=== PATIENT | female | born 1955 | race Caucasian/White ===

== ENCOUNTER 2019-04-16 11:24 | Day surgery (SDC) | payer OTHER ==
[2019-04-16 12:34] LABS: ADD MAN DIFF? NO
[2019-04-16 12:37] LABS: WHITE BLOOD COUNT 4.6 10^3/ul (4.8-10.8)
[2019-04-16 12:37] LABS: BASOPHILS % 0.2 % (0.0-2.0); EOSINOPHILS # 0.1 10^3/ul (0.0-0.5); EOSINOPHILS % 2.4 % (0.0-7.0); HEMATOCRIT 41.7 % (37.0-47.0); HEMOGLOBIN 13.3 g/dl (12.0-16.0); LYMPHOCYTES # 1.4 10^3/ul (0.8-2.9); LYMPHOCYTES % 30.5 % (15.0-51.0); MEAN CORPUSCULAR HEMOGLOBIN 27.2 pg (29.0-33.0); MEAN CORPUSCULAR HGB CONC 31.9 g/dl (32.0-37.0); MEAN CORPUSCULAR VOLUME 85.3 fl (82.0-101.0); MEAN PLATELET VOLUME 10.8 fl (7.4-10.4); MONOCYTE # 0.3 10^3/ul (0.3-0.9); MONOCYTES % 6.1 % (0.0-11.0); NEUTROPHIL # 2.8 10^3/ul (1.6-7.5); NEUTROPHILS % 60.6 % (39.0-77.0); PLATELET COUNT 186 10^3/UL (140-415); RED BLOOD COUNT 4.89 10^6/ul (4.20-5.40)
[2019-04-16] MEDS: SOD CHLORIDE 0.9% 1,000 ML IV (12:50)
[2019-04-16 12:54] LABS: ANION GAP 4 (5-13); BLOOD UREA NITROGEN 19 mg/dl (7-20); CALCIUM 8.5 mg/dl (8.4-10.2); CARBON DIOXIDE 27 mmol/L (21-31); CHLORIDE 108 mmol/L (97-110); CREATININE 0.61 mg/dl (0.44-1.00); Estimated GFR > 60 mL/min (>60); GLUCOSE 79 mg/dl (70-220); POTASSIUM 4.3 mmol/L (3.5-5.1); SODIUM 139 mmol/L (135-144)
[2019-04-16 12:56] LABS: INR 0.99; PROTIME 13.2 Sec (11.9-14.9)
[2019-04-16 12:57] LABS: PARTIAL THROMBOPLASTIN TIME 30.8 Sec (23.0-35.0)
[2019-04-16] MEDS ORDERED: GENTAMICIN 80 MG INJ (12:58)
[2019-04-16] MEDS ORDERED: morphine 2 MG INJ IV (15:00)
[2019-04-16] MEDS ORDERED: HYDROCODONE/APAP (5/325) TAB PO (15:00)
[2019-04-16] MEDS ORDERED: ONDANSETRON 4 MG INJ IV (15:00)
[2019-04-16] MEDS ORDERED: ACETAMINOPHEN 325 MG TAB PO (15:00)
[2019-04-16] MEDS ORDERED: LIDOCAINE 2% (SDV) 5 ML INJ (15:13)
[2019-04-16] MEDS ORDERED: FENTAnyl 50 MCG/ML VIAL (15:13)
[2019-04-16] MEDS ORDERED: MIDAZOLAM 1 MG/ML 2 ML INJ (15:13)
[2019-04-16] MEDS ORDERED: PROPOFOL 20 ML (15:13)
[2019-04-16] MEDS ORDERED: CEFAZOLIN 1 GM INJ (15:24)
[2019-04-16] MEDS ORDERED: ONDANSETRON 4 MG INJ (15:25)
[2019-04-16] MEDS ORDERED: DEXAMETHASONE 4 MG/ML 5 ML INJ (15:25)
[2019-04-16] MEDS ORDERED: DIPHENHYDRAMINE 50 MG INJ IV (15:30)
[2019-04-16] MEDS ORDERED: MEPERIDINE 25 MG INJ IV (15:30)
[2019-04-16] MEDS ORDERED: PROCHLORPERAZINE 10 MG INJ IV (15:30)
[2019-04-16] MEDS ORDERED: HYDROmorphONE 1 MG/5 ML IV SYRINGE IV ×3 (15:30)
[2019-04-16] MEDS: POLYMYXIN/BACITRACIN 1L IRRIG (15:33)
[2019-04-16] MEDS: BUPIVACAINE 0.25%/EPI (SDV) 10 ML INJ (15:33)
[2019-04-16] MEDS ORDERED: EPHEDrine 25 MG/5 ML SYG (15:36)
[2019-04-16] MEDS: BUPIVACAINE LIPOSOME/PF 266 MG/20 ML VIAL INFIL (15:40)
[2019-04-16] MEDS: FENTAnyl 50 MCG/ML VIAL IV ×3 (16:29→16:46)
[2019-04-16] MEDS: ONDANSETRON 4 MG INJ IV (16:30)
[2019-04-16] MEDS: OXYCODONE/ACETAMINOPHEN (5/325) TAB PO (16:50)
== END 2019-04-16 18:09 | disposition home or self-care (01) ==
LOC: SDS 11:24
DX: N64.4 Mastodynia (principal); F32.9 Major depressive disorder, single episode, unspecified; M32.9 Systemic lupus erythematosus, unspecified
CPT/HCPCS: 19330; 80048; 85025; 85610; 85730